=== PATIENT | male | born 1990 | race Caucasian/White ===

== ENCOUNTER 2023-12-15 01:39 | Emergency (ER) | payer SELFPAY ==
[~2023-12-15] VITALS: Ht 162.6 cm; Wt 65.9 kg
[2023-12-15 01:44] VITALS: TEMP 99
[2023-12-15] MEDS ORDERED: CEPH-558 PO (02:12)
[2023-12-15] MEDS ORDERED: IBUP-1492 PO (02:12)
[2023-12-15] MEDS ORDERED: BACTDSB PO (02:12)
[2023-12-15 02:18] VITALS: BP 125/95; PULSE 90; RESP 16; O2SAT 98
[2023-12-15] MEDS: CEPHALEXIN MONOHYDRATE 500 MG CAPSULE PO ONE (02:26)
[2023-12-15] MEDS: SULFAMETHOX/TRIMETH DS 800-160 MG/TABLET PO ONE (02:26)
[2023-12-15] MEDS: IBUPROFEN 600 MG TABLET PO ONE (02:26)
== END 2023-12-15 02:31 | disposition home or self-care (01) ==
LOC: EMS 01:39
DX: L03.113 Cellulitis of right upper limb (principal); F12.90 Cannabis use, unspecified, uncomplicated
CPT/HCPCS: 99284; 73090-TC; 73110-TC; 73130-TC; Z7502; Z7610

== ENCOUNTER 2023-12-15 10:31 | Emergency (ER) | payer MEDICAID ==
[~2023-12-15] VITALS: Ht 167.6 cm; Wt 65.9 kg
[~2023-12-15 10:31] MED LIST: BACTDSB PO; CEPH-558 PO; IBUP-1492 PO
[2023-12-15 10:54] VITALS: TEMP 98.7
[2023-12-15] MEDS: CEPHALEXIN MONOHYDRATE 500 MG CAPSULE PO ONE (12:49)
[2023-12-15] MEDS: SULFAMETHOX/TRIMETH DS 800-160 MG/TABLET PO ONE (12:49)
[2023-12-15] MEDS: IBUPROFEN 400 MG TABLET PO ONE (12:50)
[2023-12-15 13:00] VITALS: BP 124/77; PULSE 69; RESP 15; O2SAT 99
== END 2023-12-15 13:52 | disposition home or self-care (01) ==
LOC: EMS 10:45
DX: L03.113 Cellulitis of right upper limb (principal); F12.90 Cannabis use, unspecified, uncomplicated
CPT/HCPCS: 99284; Z7502; Z7610

== ENCOUNTER → 2023-12-16 | Emergency (ER) | payer MEDICAID ==
[~2023-12-16] VITALS: Ht 162.6 cm; Wt 63.6 kg
[2023-12-16 16:11] VITALS: BP 130/76; PULSE 84; RESP 18; TEMP 99.2; O2SAT 100
[2023-12-16] MEDS: MUPIROCIN CALCIUM 2% 22 GM OINTMENT TP ONE (16:41)
== END | disposition still patient (30) ==
LOC: EMS 15:55
DX: L01.00 Impetigo, unspecified (principal); F12.90 Cannabis use, unspecified, uncomplicated
CPT/HCPCS: 99283